=== PATIENT | male | born 1935 | race Two or more races ===

== ENCOUNTER 2017-08-30 07:36 | Outpatient (CLI) | payer OTHER | END 2017-08-30 07:49 | disposition home or self-care (01) | LOC: LAB 07:36 | DX: E11.65 Type 2 diabetes mellitus with hyperglycemia (principal); N39.0 Urinary tract infection, site not specified; N40.1 Benign prostatic hyperplasia with lower urinary tract symptoms; E78.2 Mixed hyperlipidemia; I12.9 Hypertensive chronic kidney disease with stage 1 through stage 4 chronic kidney disease, or unspecified chronic kidney disease ==

== ENCOUNTER 2017-12-04 09:40 | Outpatient (CLI) | payer OTHER | END 2017-12-04 09:57 | disposition home or self-care (01) | LOC: NUCLEAR 09:40 | DX: M81.0 Age-related osteoporosis without current pathological fracture (principal) ==